=== PATIENT | male | born 1995 ===

== ENCOUNTER 2020-10-06 17:36 | Emergency (ER) | payer MEDICAID ==
[~2020-10-06] VITALS: Ht 175.3 cm; Wt 74.4 kg
[2020-10-06 18:13] VITALS: BP 113/67
--- NOTE | 2020-10-06 19:21 | NUR ---
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 Pt not in lobby at this time.
--- NOTE | 2020-10-06 20:17 | NUR ---
NO ANSWER IN LOBBY.
--- NOTE | 2020-10-06 21:02 | NUR ---
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 Pt not in lobby at this time for third attempt.
== END 2020-10-06 21:07 | disposition home or self-care (01) ==
LOC: ED 20:55
DX: R51.9 Headache, unspecified (principal); J02.9 Acute pharyngitis, unspecified; Z53.21 Procedure and treatment not carried out due to patient leaving prior to being seen by health care provider